=== PATIENT | female | born 1990 | race Caucasian/White ===

== ENCOUNTER 2021-02-24 09:12 | Inpatient (IN) ==
[2021-02-24] MEDS ORDERED: OXYTOCIN 30 UNITS/500 ML BAG IV PRN ×2 (10:51→18:27)
--- NOTE | 2021-02-24 11:01 | Labor Progress Brief Note ---
Date of Service February 24, 2021 Subjective Contractions Q5-10 no LOF, VB good FM Assessment & Plan (1) Normal labor and delivery: Physical Exam Physical Exam: 4cm/80/-2 FHT Cat 1 [place] Q5-10 Results & Data ([facility]) Vital Signs (Past 12 Hours) Vital Signs Temp Pulse Resp BP 02/24/21 09:39 97.9 F 20 02/24/21 09:27 96 H 122/72 Coding Level of Care Code None Diagnoses Normal labor and delivery O80
[2021-02-24 11:16] LABS: Hematocrit (blood only) 35.2 % (37-47); Hemoglobin 11.8 g/dL (12.0-16.0); Mean Corpuscular Hemoglobin 28.8 pg (25-34); Mean Corpuscular Hgb Conc 33.5 g/dL (32-36); Mean Corpuscular Volume 85.9 fL (80-100); Mean Platelet Volume 9.7 fL (7.4-10.4); Platelet Count 265 K/uL (130-400); RDW Coefficient of Variation 14.5 % (11.5-14.5); RDW Standard Deviation 44.9 fL (36.4-46.3); White Blood Count 15.78 K/uL (4.8-10.8)
[2021-02-24] MEDS: LACTATED RINGER'S 1,000 ML IV PRN ×2 (18:15→19:31)
[2021-02-24] MEDS ORDERED: ePHEDrine sulfate 50 MG/ML AMP ONE (18:27)
[2021-02-24] MEDS ORDERED: SODIUM CHLORIDE 0.9% INJ 10 ML VIAL ONE (18:27)
[2021-02-24] MEDS ORDERED: BUPIVACAINE 0.25% 30 ML VIAL ONE (18:28)
[2021-02-24] MEDS ORDERED: fentaNYL 2MCG/ML ROPIVACAINE 1.25MG/ML 100 ML BAG EPI ONE (18:28)
[2021-02-24] MEDS ORDERED: fentaNYL citrate 100 MCG/2 ML VIAL ONE (18:28)
--- NOTE | 2021-02-24 18:29 | Labor Progress Brief Note ---
Date of Service February 24, 2021 Subjective requesting epidural Assessment & Plan (1) Normal labor and delivery: Patient would like epidural; will provide, can assess toco better when maternal movement is less, and start pitocin as cervical change was minimal. Admission and Anticipated Discharge Date Admission Date: February 24, 2021 Physical Exam Physical Exam: /0 FHT Cat 1 [place] irreg Results & Data ([facility]) Vital Signs (Past 12 Hours) Vital Signs Temp Pulse Resp BP 02/24/21 17:34 92 H 142/74 H 02/24/21 17:32 98.1 F 20 02/24/21 15:48 98.1 F 95 H 20 128/76 02/24/21 14:30 98.1 F 94 H 20 129/76 02/24/21 12:39 91 H 132/72 02/24/21 09:39 97.9 F 20 02/24/21 09:27 96 H 122/72 Coding Level of Care Code None Diagnoses Normal labor and delivery O80
--- NOTE | 2021-02-24 19:01 | Anesthesiology Consultation ---
Date of Service February 24, 2021 Assessment & Plan (1) Encounter for pre-operative examination: Chart Review Chart Review: Acceptable Risk for Labor Epidural History Height/Weight Height: 5 ft 7 in Weight: 109.769 kg Allergies Allergy/AdvReac Type Severity Reaction Status Date / Time Penicillins Allergy Verified 02/21/21 12:21 pollen extracts Allergy Verified 02/21/21 12:21 Medications Home Medications Medication Instructions Recorded Confirmed Last Taken albuterol sulfate 90 mcg/actuation 2 puff INHALATION Q6H PRN 10/18/20 02/21/21 Unknown aerosol inhaler levothyroxine 200 mcg capsule 212 mcg PO DAILY 10/18/20 02/24/21 02/24/21 0600 acetaminophen PO 11/15/20 02/21/21 Unknown vit #[id number] 1 tab PO 02/24/21 02/24/21 0600 Active Medications Generic Name Dose Route Start Last Admin Trade Name Freq PRN Reason Stop Dose Admin Lactated Ringer's 1,000 mls @ 125 mls/hr 02/24/21 10:51 02/24/21 18:15 Lr IV 02/26/21 10:50 999 mls/hr .Q8H PRN Administration L&D Protocol Protocol Past Medical History Medical History Asthma Skin cancer Past Family History Family History Father Myocardial infarction Diabetes Mother COPD (chronic obstructive pulmonary disease) Grandmother (Paternal) Skin cancer Past Surgical History Surgical History Status post surgical removal of malignant neoplasm of skin Social History Smoking Status: Former smoker Hx Alcohol Use: No Hx Substance Use: No substance use type: does not use Physical Exam Vital Signs Last Vital Signs Temp 36.7 C 02/24/21 17:32 Pulse 92 H 02/24/21 17:34 Resp 20 02/24/21 17:32 BP 142/74 H 02/24/21 17:34 Testing Laboratory Results 02/24/21 11:03
[2021-02-24] MEDS ORDERED: NALOXONE HCL 1 MG in SODIUM CHLORIDE 0.9% 1000ML 1,000 ML IV PRN (19:29)
[2021-02-24] MEDS ORDERED: ONDANSETRON INJ 2 MG/ML 2 ML VIAL IV PRN (19:29)
[2021-02-24] MEDS ORDERED: fentaNYL 2MCG/ML ROPIVACAINE 1.25MG/ML 100 ML BAG EPI PRN (19:29)
[2021-02-24] MEDS ORDERED: NALOXONE HCL 0.4 MG/1 ML VIAL/CARP IV PRN (19:29)
[2021-02-24] MEDS ORDERED: ePHEDrine sulfate 50 MG/ML AMP IV PRN (19:29)
[2021-02-25] MEDS: LACTATED RINGER'S 1,000 ML IV PRN ×2 (02:50→11:09)
--- NOTE | 2021-02-25 03:47 | Labor Progress Brief Note ---
Date of Service February 25, 2021 Subjective Comfortable with epidural Assessment & Plan (1) Normal labor and delivery: Patient has reached complete dilation and was labored-down due to other events on L&D. Pitocin mentioned and ordered at 1830 was never started also due to other events. RN recently called me to ask to start pitocin to make second stage more effective as contractions are widely spaced; pt is now beginning pitocin. Contractions moving closer and will soon begin active pushing. Will require coaching to make pushing more effective, clenching external muscles with pushes but also moving baby with a test push during my exam. Maternal temp and baseline noted, no chorio or indication for abx yet but may become necessary depending on how long 2nd stage takes. Admission and Anticipated Discharge Date Admission Date: February 24, 2021 Physical Exam Physical Exam: /+2 FHT Cat 1 with baseline 155 [place] Q5, pit @ 1 Test push minimally effective Results & Data ([facility]) Vital Signs (Past 12 Hours) Vital Signs Temp Pulse Resp BP Pulse Ox 02/25/21 03:27 110 H 99 02/25/21 03:22 114 H 107/58 L 99 02/25/21 03:17 127 H 100 02/25/21 03:12 115 H 100 02/25/21 03:07 113 H 114/59 L 100 02/25/21 03:02 107 H 98 02/25/21 02:57 108 H 99 02/25/21 02:52 109 H 123/75 99 02/25/21 02:47 111 H 97 02/25/21 02:42 115 H 97 02/25/21 02:37 113 H 97 02/25/21 02:36 105 H 121/69 02/25/21 02:32 102 H 97 02/25/21 02:27 111 H 97 02/25/21 02:22 109 H 121/77 98 02/25/21 02:17 102 H 97 02/25/21 02:12 105 H 99 02/25/21 02:07 102 H 98 02/25/21 02:05 106 H 125/76 02/25/21 02:02 113 H 99 02/25/21 02:01 99.3 F 18 02/25/21 01:57 107 H 98 02/25/21 01:52 112 H 97 02/25/21 01:51 105 H 126/74 02/25/21 01:47 103 H 97 02/25/21 01:42 111 H 100 02/25/21 01:37 104 H 98 02/25/21 01:35 112 H 124/76 02/25/21 01:32 100 H 97 02/25/21 01:27 108 H 96 02/25/21 01:22 107 H 126/80 97 02/25/21 01:17 100 H 97 02/25/21 01:12 99 H 99 02/25/21 01:07 102 H 100 02/25/21 01:05 99 H 133/75 02/25/21 01:02 99 H 99 02/25/21 00:57 100 H 99 02/25/21 00:52 102 H 100 02/25/21 00:51 98 H 137/80 02/25/21 00:47 100 H 100 02/25/21 00:42 102 H 99 02/25/21 00:37 113 H 121/79 100 02/25/21 00:32 96 H 97 02/25/21 00:27 97 H 98 02/25/21 00:22 95 H 98 02/25/21 00:21 93 H 132/79 02/25/21 00:17 107 H 99 02/25/21 00:12 108 H 98 02/25/21 00:07 100 H 97 02/25/21 00:06 110 H 103/59 L 02/25/21 00:02 110 H 98 02/24/21 23:57 107 H 98 02/24/21 23:53 108 H 110/54 L 02/24/21 23:52 109 H 99 02/24/21 23:47 102 H 98 02/24/21 23:42 97 H 97 02/24/21 23:37 98 H 96 02/24/21 23:36 103 H 106/56 L 02/24/21 23:32 122 H 97 02/24/21 23:27 105 H 97 02/24/21 23:22 112 H 96 02/24/21 23:21 111 H 98/55 L 02/24/21 23:17 100 H 97 02/24/21 23:12 112 H 98 02/24/21 23:07 105 H 98 02/24/21 23:06 99 H 120/71 02/24/21 23:02 117 H 98 02/24/21 23:00 99.0 F 18 02/24/21 22:57 95 H 98 02/24/21 22:52 112 H 97 02/24/21 22:51 103 H 115/67 02/24/21 22:47 100 H 97 02/24/21 22:42 101 H 96 02/24/21 22:37 111 H 96 02/24/21 22:36 109 H 108/60 02/24/21 22:32 103 H 96 02/24/21 22:27 100 H 96 02/24/21 22:22 107 H 96 02/24/21 22:21 104 H 112/62 02/24/21 22:17 100 H 96 02/24/21 22:12 102 H 96 02/24/21 22:07 105 H 108/58 L 96 02/24/21 22:02 97 H 96 02/24/21 21:57 96 H 95 02/24/21 21:52 95 H 96 02/24/21 21:51 99 H 107/60 02/24/21 21:47 98 H 96 02/24/21 21:42 101 H 96 02/24/21 21:37 100 H 97 02/24/21 21:36 97 H 112/65 02/24/21 21:32 97 H 96 02/24/21 21:27 94 H 97 02/24/21 21:22 89 100 02/24/21 21:20 95 H 107/65 02/24/21 21:17 92 H 98 02/24/21 21:15 98.2 F 18 02/24/21 21:12 92 H 98 02/24/21 21:10 95 H 106/62 02/24/21 21:07 93 H 98 02/24/21 21:02 93 H 97 02/24/21 20:57 93 H 97 02/24/21 20:52 101 H 96 02/24/21 20:47 94 H 97 02/24/21 20:42 90 96 02/24/21 20:37 90 97 02/24/21 20:32 106 H 98 02/24/21 20:27 89 96 02/24/21 20:22 85 97 02/24/21 20:20 88 115/63 02/24/21 20:17 84 97 02/24/21 20:12 96 H 97 02/24/21 20:07 94 H 97 02/24/21 20:06 90 113/64 02/24/21 20:02 88 97 02/24/21 19:57 95 H 97 02/24/21 19:53 95 H 119/65 02/24/21 19:52 96 H 97 02/24/21 19:47 100 H 97 02/24/21 19:42 102 H 97 02/24/21 19:37 107 H 98 02/24/21 19:36 110 H 119/67 02/24/21 19:33 103 H 116/63 02/24/21 19:32 108 H 99 02/24/21 19:30 98 H 116/67 02/24/21 19:27 111 H 116/61 100 02/24/21 19:26 98.6 F 02/24/21 19:25 94 H 125/68 02/24/21 19:22 95 H 100 02/24/21 19:21 116 H 150/72 H 02/24/21 19:18 125 H 150/85 H 02/24/21 19:17 113 H 100 02/24/21 19:15 109 H 148/73 H 02/24/21 19:12 103 H 100 02/24/21 17:34 92 H 142/74 H 02/24/21 17:32 98.1 F 20 02/24/21 15:48 98.1 F 95 H 20 128/76 Coding Level of Care Code None Diagnoses Normal labor and delivery O80
--- NOTE | 2021-02-25 07:10 | Delivery Summary ---
Vaginal Delivery Summary Date of Service February 25, 2021 Vaginal Delivery Summary DIAGNOSES: 1. Sandhu intrauterine at 40w2d gestation. 2. Spontaneous onset of labor. 3. Group B Streptococcus Neg. PROCEDURE: Spontaneous vaginal delivery and repair of second degree laceration. SURGEON: Alaina Caraballo MD. IMAGING SPECIALIST: None. ESTIMATED BLOOD LOSS: 300 mL. COMPLICATIONS: None. PLACENTA: Spontaneous and intact with a 3-vessel cord. DISPOSITION: Stable to labor and delivery. DESCRIPTION: The patient pushed well and brought the head to in OA position. The 's head was allowed to deliver with contraction force and no further active pushing, with the perineum protected during this time. The shoulders delivered easily with a maternal pushing effort. There was no nuchal cord. The left shoulder was anterior, and right arm compound presentation was noted. The shoulders and body delivered without any difficulty, and the infant was placed on the maternal abdomen. It was vigorous and moving all extremities, and making respiratory efforts. The cord was doubly clamped by the MD and then cut by the FOB. The placenta delivered spontaneously and was noted to be intact and with a 3VC. The cervix, vagina and perineum were examined and were found to have a second-degree laceration which was repaired in the usual manner with vicryl suture, including a crown stitch to rebuild the perineal body. The fundus was firm and lochia minimal immediately after delivery. [facility] Vaginal Delivery Charge Vaginal Delivery Codes: 53259 global code for the antepartum, delivery, and post-
[2021-02-25] MEDS ORDERED: oxyCODONE/ACETAMINOPHEN 5mg/325mg TAB PO PRN (07:16)
[2021-02-25] MEDS ORDERED: SUPERCREAM 0.870% 15 GM JAR EXT PRN (07:16)
[2021-02-25] MEDS ORDERED: BENZOCAINE 20% AER SPR 82.5 GM CAN EXT PRN (07:16)
[2021-02-25] MEDS ORDERED: HYDROCORTISONE ACETATE 25 MG SUPP PR PRN (07:16)
[2021-02-25] MEDS ORDERED: ACETAMINOPHEN 325 MG TAB PO PRN (07:16)
[2021-02-25] MEDS ORDERED: DIPHTHERIA/TETANUS/PERTUSSIS 0.5 ML SYR/VIAL IM ONE (07:16)
--- NOTE | 2021-02-25 07:27 | Anesthesiology Progress Note ---
Date of Service February 25, 2021 Anesthesia Post Procedure Vital Signs Vital Signs: Temp Pulse Resp BP Pulse Ox 02/25/21 07:21 114 H 109/60 02/25/21 07:06 108 H 101/53 L 02/25/21 06:51 112 H 106/54 L 02/25/21 06:36 115 H 114/55 L 02/25/21 06:21 113 H 122/57 L 02/25/21 06:12 120 H 100 02/25/21 06:07 189 H 99 02/25/21 06:06 160 H 139/78 02/25/21 06:02 135 H 99 02/25/21 05:57 134 H 100 02/25/21 05:52 132 H 100 02/25/21 05:51 156 H 91 02/25/21 05:47 123 H 97 02/25/21 05:46 137 H 89 L 02/25/21 05:42 186 H 93 02/25/21 05:40 164 H 90 02/25/21 05:37 159 H 99 02/25/21 05:36 123 H 129/68 02/25/21 05:32 130 H 98 02/25/21 05:27 194 H 98 02/25/21 05:22 124 H 99 02/25/21 05:21 116 H 124/58 L 02/25/21 05:19 127 H 81 L 02/25/21 05:17 122 H 98 02/25/21 05:12 174 H 100 02/25/21 05:08 110 H 116/69 02/25/21 05:07 106 H 100 02/25/21 05:02 117 H 97 02/25/21 04:57 113 H 98 02/25/21 04:52 118 H 96 02/25/21 04:51 116 H 97/60 L 02/25/21 04:50 113 H 93 02/25/21 04:47 104 H 98 02/25/21 04:42 105 H 97 02/25/21 04:37 106 H 97 02/25/21 04:36 106 H 108/55 L 02/25/21 04:32 110 H 97 02/25/21 04:27 112 H 97 02/25/21 04:22 108 H 97 02/25/21 04:21 109 H 108/61 02/25/21 04:17 110 H 100 02/25/21 04:12 110 H 98 02/25/21 04:07 118 H 99 02/25/21 04:05 113 H 109/58 L 02/25/21 04:02 111 H 98 02/25/21 03:57 111 H 98 02/25/21 03:52 111 H 99 02/25/21 03:51 110 H 109/59 L 02/25/21 03:47 109 H 99 02/25/21 03:42 110 H 100 02/25/21 03:37 116 H 100 02/25/21 03:35 109 H 109/61 02/25/21 03:32 116 H 98 02/25/21 03:27 110 H 99 02/25/21 03:22 114 H 107/58 L 99 02/25/21 03:17 127 H 100 02/25/21 03:12 115 H 100 02/25/21 03:07 113 H 114/59 L 100 02/25/21 03:02 107 H 98 02/25/21 02:57 108 H 99 02/25/21 02:52 109 H 123/75 99 02/25/21 02:47 111 H 97 02/25/21 02:42 115 H 97 02/25/21 02:37 113 H 97 02/25/21 02:36 105 H 121/69 02/25/21 02:32 102 H 97 02/25/21 02:27 111 H 97 02/25/21 02:22 109 H 121/77 98 02/25/21 02:17 102 H 97 02/25/21 02:12 105 H 99 02/25/21 02:07 102 H 98 02/25/21 02:05 106 H 125/76 02/25/21 02:02 113 H 99 02/25/21 02:01 37.4 C 18 02/25/21 01:57 107 H 98 02/25/21 01:52 112 H 97 02/25/21 01:51 105 H 126/74 02/25/21 01:47 103 H 97 02/25/21 01:42 111 H 100 02/25/21 01:37 104 H 98 02/25/21 01:35 112 H 124/76 02/25/21 01:32 100 H 97 02/25/21 01:27 108 H 96 02/25/21 01:22 107 H 126/80 97 02/25/21 01:17 100 H 97 02/25/21 01:12 99 H 99 02/25/21 01:07 102 H 100 02/25/21 01:05 99 H 133/75 02/25/21 01:02 99 H 99 02/25/21 00:57 100 H 99 02/25/21 00:52 102 H 100 02/25/21 00:51 98 H 137/80 02/25/21 00:47 100 H 100 02/25/21 00:42 102 H 99 02/25/21 00:37 113 H 121/79 100 02/25/21 00:32 96 H 97 02/25/21 00:27 97 H 98 02/25/21 00:22 95 H 98 02/25/21 00:21 93 H 132/79 02/25/21 00:17 107 H 99 02/25/21 00:12 108 H 98 02/25/21 00:07 100 H 97 02/25/21 00:06 110 H 103/59 L 02/25/21 00:02 110 H 98 02/24/21 23:57 107 H 98 02/24/21 23:53 108 H 110/54 L 02/24/21 23:52 109 H 99 02/24/21 23:47 102 H 98 02/24/21 23:42 97 H 97 02/24/21 23:37 98 H 96 02/24/21 23:36 103 H 106/56 L 02/24/21 23:32 122 H 97 02/24/21 23:27 105 H 97 02/24/21 23:22 112 H 96 02/24/21 23:21 111 H 98/55 L 02/24/21 23:17 100 H 97 02/24/21 23:12 112 H 98 02/24/21 23:07 105 H 98 02/24/21 23:06 99 H 120/71 02/24/21 23:02 117 H 98 02/24/21 23:00 37.2 C 18 02/24/21 22:57 95 H 98 02/24/21 22:52 112 H 97 02/24/21 22:51 103 H 115/67 02/24/21 22:47 100 H 97 02/24/21 22:42 101 H 96 02/24/21 22:37 111 H 96 02/24/21 22:36 109 H 108/60 02/24/21 22:32 103 H 96 02/24/21 22:27 100 H 96 02/24/21 22:22 107 H 96 02/24/21 22:21 104 H 112/62 02/24/21 22:17 100 H 96 02/24/21 22:12 102 H 96 02/24/21 22:07 105 H 108/58 L 96 02/24/21 22:02 97 H 96 02/24/21 21:57 96 H 95 02/24/21 21:52 95 H 96 02/24/21 21:51 99 H 107/60 02/24/21 21:47 98 H 96 02/24/21 21:42 101 H 96 02/24/21 21:37 100 H 97 02/24/21 21:36 97 H 112/65 02/24/21 21:32 97 H 96 02/24/21 21:27 94 H 97 02/24/21 21:22 89 100 02/24/21 21:20 95 H 107/65 02/24/21 21:17 92 H 98 02/24/21 21:15 36.8 C 18 02/24/21 21:12 92 H 98 02/24/21 21:10 95 H 106/62 02/24/21 21:07 93 H 98 02/24/21 21:02 93 H 97 02/24/21 20:57 93 H 97 02/24/21 20:52 101 H 96 02/24/21 20:47 94 H 97 02/24/21 20:42 90 96 02/24/21 20:37 90 97 02/24/21 20:32 106 H 98 02/24/21 20:27 89 96 02/24/21 20:22 85 97 02/24/21 20:20 88 115/63 02/24/21 20:17 84 97 02/24/21 20:12 96 H 97 02/24/21 20:07 94 H 97 02/24/21 20:06 90 113/64 02/24/21 20:02 88 97 02/24/21 19:57 95 H 97 02/24/21 19:53 95 H 119/65 02/24/21 19:52 96 H 97 02/24/21 19:47 100 H 97 02/24/21 19:42 102 H 97 02/24/21 19:37 107 H 98 02/24/21 19:36 110 H 119/67 02/24/21 19:33 103 H 116/63 02/24/21 19:32 108 H 99 02/24/21 19:30 98 H 116/67 02/24/21 19:27 111 H 116/61 100 02/24/21 19:26 37.0 C 02/24/21 19:25 94 H 125/68 02/24/21 19:22 95 H 100 02/24/21 19:21 116 H 150/72 H 02/24/21 19:18 125 H 150/85 H 02/24/21 19:17 113 H 100 02/24/21 19:15 109 H 148/73 H 02/24/21 19:12 103 H 100 02/24/21 17:34 92 H 142/74 H 02/24/21 17:32 36.7 C 20 02/24/21 15:48 36.7 C 95 H 20 128/76 02/24/21 14:30 36.7 C 94 H 20 129/76 02/24/21 12:39 91 H 132/72 02/24/21 09:39 36.6 C 20 02/24/21 09:27 96 H 122/72 Pain Intensity Lower Back: Pain Intensity: 2 Transfer of Care Handoff Completed per policy Notes Mental Status: alert / awake / arousable and participated in evaluation Patient Amnestic to Procedure: Yes Nausea / Vomiting: adequately controlled Pain: adequately controlled Airway Patency, RR, SpO2: stable & adequate BP & HR: stable & adequate Hydration State: stable & adequate Anesthetic Complications: no major complications apparent and Pt Satisfied with anesthetic care
[2021-02-25] MEDS: LEVOTHYROXINE SODIUM 100 MCG TABLET PO SCH (07:49)
[2021-02-25] MEDS: LEVOTHYROXINE SODIUM 112 MCG TABLET PO SCH (07:49)
--- NOTE | 2021-02-25 09:05 | Obstetrical Progress Note ---
Date of Service February 25, 2021 Assessment & Plan Admission and Anticipated Discharge Date Admission Date: February 24, 2021 Subjective I was called to patient's room by RN for elevated heart rate. Patient has been sitting up, eating breakfast, and at routine vital signs check nurse discovered pulse of 150. At that time, the automatic blood pressure cuff was located on the patient's elbow, and I asked for to be repositioned in rechecked. Subsequent to pulse was still elevated, 137. Blood pressure 119/57. Patient's pulse, and review of her overnight events, was mostly in the 90s to low 100s, with some values reaching as high as 174 and 194 in the past few hours, likely while she was pushing. I examined the patient, she stated she felt fine, but "hot". She states she has been hot her entire , and this is not out of the ordinary. Denies headache, vision changes, chest pain, shortness of breath, nausea, vomiting. She did also just recently get up to the bathroom with RN help for the first time since delivery, felt faint, and required ammonia stick to resume full consciousness. Physical exam reveals a patient who is awake, talking, sitting up in bed. Heart rate is tachycardic with regular rhythm. Lung sounds are clear and equal bilaterally. Abdomen is soft. No lower extremity edema. Small lochia. I have ordered stat labs, CBC, CMP, TSH with T4. Also ordered stat EKG. Given that patient's O2 saturation has been normal, and she does not report shortness of breath or chest pain, I think PE is less likely, however if no obvious findings and the above labs will also consider CT to rule out. I discussed this with the patient, she is agreeable. Results & Data ([facility]) Vital Signs (Past 12 Hours) Vital Signs Temp Pulse Resp BP Pulse Ox 02/25/21 08:56 137 H 97 02/25/21 08:51 150 H 119/57 L 97 02/25/21 08:46 128 H 97 02/25/21 08:43 133 H 121/61 02/25/21 08:21 151 H 126/51 L 02/25/21 08:06 126 H 112/56 L 02/25/21 07:51 118 H 113/52 L 02/25/21 07:36 116 H 101/57 L 02/25/21 07:21 114 H 109/60 02/25/21 07:20 18 02/25/21 07:06 108 H 101/53 L 02/25/21 07:05 18 02/25/21 06:51 112 H 106/54 L 02/25/21 06:36 115 H 114/55 L 02/25/21 06:21 113 H 122/57 L 02/25/21 06:12 120 H 100 02/25/21 06:07 189 H 99 02/25/21 06:06 160 H 139/78 02/25/21 06:02 135 H 99 02/25/21 05:57 134 H 100 02/25/21 05:52 132 H 100 02/25/21 05:51 156 H 91 02/25/21 05:47 123 H 97 02/25/21 05:46 137 H 89 L 02/25/21 05:42 186 H 93 02/25/21 05:40 164 H 90 02/25/21 05:37 159 H 99 02/25/21 05:36 123 H 129/68 02/25/21 05:32 130 H 98 02/25/21 05:27 194 H 98 02/25/21 05:22 124 H 99 02/25/21 05:21 116 H 124/58 L 02/25/21 05:19 127 H 81 L 02/25/21 05:17 122 H 98 02/25/21 05:12 174 H 100 02/25/21 05:08 110 H 116/69 02/25/21 05:07 106 H 100 02/25/21 05:02 117 H 97 02/25/21 04:57 113 H 98 02/25/21 04:52 118 H 96 02/25/21 04:51 116 H 97/60 L 02/25/21 04:50 113 H 93 02/25/21 04:47 104 H 98 02/25/21 04:42 105 H 97 02/25/21 04:37 106 H 97 02/25/21 04:36 106 H 108/55 L 02/25/21 04:32 110 H 97 02/25/21 04:27 112 H 97 02/25/21 04:22 108 H 97 02/25/21 04:21 109 H 108/61 02/25/21 04:17 110 H 100 02/25/21 04:12 110 H 98 02/25/21 04:07 118 H 99 02/25/21 04:05 113 H 109/58 L 02/25/21 04:02 111 H 98 02/25/21 03:57 111 H 98 02/25/21 03:52 111 H 99 02/25/21 03:51 110 H 109/59 L 02/25/21 03:47 109 H 99 02/25/21 03:42 110 H 100 02/25/21 03:37 116 H 100 02/25/21 03:35 109 H 109/61 02/25/21 03:32 116 H 98 02/25/21 03:27 110 H 99 02/25/21 03:22 114 H 107/58 L 99 02/25/21 03:17 127 H 100 02/25/21 03:12 115 H 100 02/25/21 03:07 113 H 114/59 L 100 02/25/21 03:02 107 H 98 02/25/21 02:57 108 H 99 02/25/21 02:52 109 H 123/75 99 02/25/21 02:47 111 H 97 02/25/21 02:42 115 H 97 02/25/21 02:37 113 H 97 02/25/21 02:36 105 H 121/69 02/25/21 02:32 102 H 97 02/25/21 02:27 111 H 97 02/25/21 02:22 109 H 121/77 98 02/25/21 02:17 102 H 97 02/25/21 02:12 105 H 99 02/25/21 02:07 102 H 98 02/25/21 02:05 106 H 125/76 02/25/21 02:02 113 H 99 02/25/21 02:01 37.4 C 18 02/25/21 01:57 107 H 98 02/25/21 01:52 112 H 97 02/25/21 01:51 105 H 126/74 02/25/21 01:47 103 H 97 02/25/21 01:42 111 H 100 02/25/21 01:37 104 H 98 02/25/21 01:35 112 H 124/76 02/25/21 01:32 100 H 97 02/25/21 01:27 108 H 96 02/25/21 01:22 107 H 126/80 97 04/26/21 01:17 100 H 97 02/25/21 01:12 99 H 99 02/25/21 01:07 102 H 100 02/25/21 01:05 99 H 133/75 02/25/21 01:02 99 H 99 02/25/21 00:57 100 H 99 02/25/21 00:52 102 H 100 02/25/21 00:51 98 H 137/80 02/25/21 00:47 100 H 100 02/25/21 00:42 102 H 99 02/25/21 00:37 113 H 121/79 100 02/25/21 00:32 96 H 97 02/25/21 00:27 97 H 98 02/25/21 00:22 95 H 98 02/25/21 00:21 93 H 132/79 02/25/21 00:17 107 H 99 02/25/21 00:12 108 H 98 02/25/21 00:07 100 H 97 02/25/21 00:06 110 H 103/59 L 02/25/21 00:02 110 H 98 02/24/21 23:57 107 H 98 02/24/21 23:53 108 H 110/54 L 02/24/21 23:52 109 H 99 02/24/21 23:47 102 H 98 02/24/21 23:42 97 H 97 02/24/21 23:37 98 H 96 02/24/21 23:36 103 H 106/56 L 02/24/21 23:32 122 H 97 02/24/21 23:27 105 H 97 02/24/21 23:22 112 H 96 02/24/21 23:21 111 H 98/55 L 02/24/21 23:17 100 H 97 02/24/21 23:12 112 H 98 02/24/21 23:07 105 H 98 02/24/21 23:06 99 H 120/71 02/24/21 23:02 117 H 98 02/24/21 23:00 37.2 C 18 02/24/21 22:57 95 H 98 02/24/21 22:52 112 H 97 02/24/21 22:51 103 H 115/67 02/24/21 22:47 100 H 97 02/24/21 22:42 101 H 96 02/24/21 22:37 111 H 96 04/25/21 22:36 109 H 108/60 02/24/21 22:32 103 H 96 02/24/21 22:27 100 H 96 02/24/21 22:22 107 H 96 02/24/21 22:21 104 H 112/62 02/24/21 22:17 100 H 96 02/24/21 22:12 102 H 96 02/24/21 22:07 105 H 108/58 L 96 02/24/21 22:02 97 H 96 02/24/21 21:57 96 H 95 02/24/21 21:52 95 H 96 02/24/21 21:51 99 H 107/60 02/24/21 21:47 98 H 96 02/24/21 21:42 101 H 96 02/24/21 21:37 100 H 97 02/24/21 21:36 97 H 112/65 02/24/21 21:32 97 H 96 02/24/21 21:27 94 H 97 02/24/21 21:22 89 100 02/24/21 21:20 95 H 107/65 02/24/21 21:17 92 H 98 02/24/21 21:15 36.8 C 18 02/24/21 21:12 92 H 98 02/24/21 21:10 95 H 106/62 02/24/21 21:07 93 H 98 02/24/21 21:02 93 H 97 PG Care Time/CCT Total # of Minutes Spent Total Time Spent with Patient: Total time spent is greater than 50% in coordination of care (as documented) at patient's floor/unit and/or counseling patient: Coding Level of Care Code None
[2021-02-25 09:29] LABS: Albumin Level 2.2 gm/dl (3.4-5.0); Calcium 8.7 mg/dl (8.5-10.1); Creatinine Clr Calc Pharmacy 142.5 ml/min; Est GFR (African American) 127.2; Est GFR (Non-African American) 109.7; Potassium 3.5 mmol/L (3.5-5.1)
[2021-02-25 09:39] LABS: Albumin Globulin Ratio 0.6 (0.9-2); Bilirubin,Total 0.4 mg/dl (0.2-1); Globulin 3.5 gm/dl (2.5-4.0); Thyroid Stimulating Hormone 0.335 uIu/ml (0.300-4.500); Total Protein 5.7 gm/dl (6.4-8.2)
[2021-02-25 09:46] LABS: Basophils # (auto) 0.03 K/uL (0-0.2); Basophils % (auto) 0.1 %; Eosinophils # (auto) 0.01 K/uL (0-0.5); Hemoglobin 11.2 g/dL (12.0-16.0); Immature Granulocytes # (auto) 0.25 K/uL (0.00-0.02); Immature Granulocytes % (auto) 0.9 %; Lymphocytes # (auto) 1.28 K/uL (1.2-3.4); Lymphocytes % (auto) 4.7 %; Mean Corpuscular Hemoglobin 28.7 pg (25-34); Mean Corpuscular Hgb Conc 33.9 g/dL (32-36); Mean Corpuscular Volume 84.6 fL (80-100); Mean Platelet Volume 10.4 fL (7.4-10.4); Monocytes # (auto) 1.79 K/uL (0.11-0.59); Monocytes % (auto) 6.6 %; Neutrophils # (auto) 23.89 K/uL (1.4-6.5); Neutrophils % (auto) 87.7 %; Platelet Count 258 K/uL (130-400); RDW Coefficient of Variation 14.6 % (11.5-14.5); RDW Standard Deviation 44.9 fL (36.4-46.3); Toxic Vacuolation 1+; White Blood Count 27.25 K/uL (4.8-10.8)
--- NOTE | 2021-02-25 09:52 | Anesthesia Procedure Note ---
Date of Service February 25, 2021 Anesthesia Post Epidural Note Vital Signs Vital Signs: Temp Pulse Resp BP Pulse Ox 37.4 C 127 H 18 109/57 L 96 02/25/21 02:01 02/25/21 09:46 02/25/21 07:50 02/25/21 09:36 02/25/21 09:46 Pain Intensity Lower Back: Pain Intensity: 2 Notes Mental Status: alert / awake / arousable and participated in evaluation Patient Amnestic to Procedure: Yes Nausea / Vomiting: adequately controlled Pain: adequately controlled Airway Patency, RR, SpO2: stable & adequate BP & HR: stable & adequate Hydration State: stable & adequate Anesthetic Complications: no major complications apparent and Pt Satisfied with anesthetic care
[2021-02-25] MEDS ORDERED: KETOROLAC 30 MG/ML VIAL ONE (10:38)
[2021-02-25] MEDS ORDERED: METHYLERGONOVINE MALEATE 0.2 MG/ML AMP IM STA (10:40)
[2021-02-25] MEDS ORDERED: KETOROLAC 30 MG/ML VIAL IV ONE (10:40)
--- NOTE | 2021-02-25 10:46 | Obstetrical Progress Note ---
Date of Service February 25, 2021 Assessment & Plan Admission and Anticipated Discharge Date Admission Date: February 24, 2021 Subjective Called to patient's room for gush of blood - 435cc on chux weighed by RN. Mile ent awake and talking. Pulse elevated, BP wnl. Temp and O2 sat normal. Fundus at umbilicus. Vaginal exam revealed large amount of clots in vagina/lower uterine segment. This was expressed/removed and weighed for 380cc. Fundal massage performed, fundus firm, no further clots/bleeding expressed from vagina after removal of clots. Appears hemostatic. IV pitocin given @ 999. Methergine IM given. Will follow with LR @ 125. Highest on differential at this point is hemorrhage with resultant tachycardia. Will continue to monitor vitals closely and watch for any further bleeding. Hgb on admission 11.8, this morning's lab after delivery was 11.2. With chux weighed by RN 435 + expressed clots 380, + EBL at time of delivery 300ml = total blood loss of 1115cc. Will repeat H/H to continue to eval hemodynamic status. Results & Data ([facility]) Vital Signs (Past 12 Hours) Vital Signs Temp Pulse Resp BP Pulse Ox 02/25/21 10:36 131 H 125/69 02/25/21 10:06 141 H 96 02/25/21 10:01 140 H 95 02/25/21 09:56 132 H 96 02/25/21 09:51 139 H 97 02/25/21 09:46 127 H 96 02/25/21 09:41 137 H 97 02/25/21 09:36 135 H 109/57 L 97 02/25/21 09:31 134 H 97 02/25/21 09:26 136 H 96 02/25/21 09:21 140 H 100/52 L 97 02/25/21 09:16 138 H 95 02/25/21 09:11 119 H 96 02/25/21 09:06 133 H 108/53 L 96 02/25/21 09:01 138 H 96 02/25/21 08:56 137 H 97 02/25/21 08:51 150 H 119/57 L 97 02/25/21 08:46 128 H 97 02/25/21 08:43 133 H 121/61 02/25/21 08:21 151 H 126/51 L 02/25/21 08:06 126 H 112/56 L 02/25/21 07:51 118 H 113/52 L 02/25/21 07:50 18 02/25/21 07:36 116 H 101/57 L 02/25/21 07:21 114 H 109/60 02/25/21 07:20 18 02/25/21 07:06 108 H 101/53 L 02/25/21 07:05 18 02/25/21 06:51 112 H 106/54 L 02/25/21 06:36 115 H 114/55 L 02/25/21 06:21 113 H 122/57 L 02/25/21 06:12 120 H 100 02/25/21 06:07 189 H 99 02/25/21 06:06 160 H 139/78 02/25/21 06:02 135 H 99 02/25/21 05:57 134 H 100 02/25/21 05:52 132 H 100 02/25/21 05:51 156 H 91 02/25/21 05:47 123 H 97 02/25/21 05:46 137 H 89 L 02/25/21 05:42 186 H 93 02/25/21 05:40 164 H 90 02/25/21 05:37 159 H 99 02/25/21 05:36 123 H 129/68 02/25/21 05:32 130 H 98 02/25/21 05:27 194 H 98 02/25/21 05:22 124 H 99 02/25/21 05:21 116 H 124/58 L 02/25/21 05:19 127 H 81 L 02/25/21 05:17 122 H 98 02/25/21 05:12 174 H 100 02/25/21 05:08 110 H 116/69 02/25/21 05:07 106 H 100 02/25/21 05:02 117 H 97 02/25/21 04:57 113 H 98 02/25/21 04:52 118 H 96 02/25/21 04:51 116 H 97/60 L 02/25/21 04:50 113 H 93 02/25/21 04:47 104 H 98 02/25/21 04:42 105 H 97 02/25/21 04:37 106 H 97 02/25/21 04:36 106 H 108/55 L 02/25/21 04:32 110 H 97 02/25/21 04:27 112 H 97 02/25/21 04:22 108 H 97 02/25/21 04:21 109 H 108/61 02/25/21 04:17 110 H 100 02/25/21 04:12 110 H 98 02/25/21 04:07 118 H 99 02/25/21 04:05 113 H 109/58 L 02/25/21 04:02 111 H 98 02/25/21 03:57 111 H 98 02/25/21 03:52 111 H 99 02/25/21 03:51 110 H 109/59 L 02/25/21 03:47 109 H 99 02/25/21 03:42 110 H 100 02/25/21 03:37 116 H 100 02/25/21 03:35 109 H 109/61 02/25/21 03:32 116 H 98 02/25/21 03:27 110 H 99 02/25/21 03:22 114 H 107/58 L 99 02/25/21 03:17 127 H 100 02/25/21 03:12 115 H 100 02/25/21 03:07 113 H 114/59 L 100 02/25/21 03:02 107 H 98 02/25/21 02:57 108 H 99 02/25/21 02:52 109 H 123/75 99 02/25/21 02:47 111 H 97 02/25/21 02:42 115 H 97 02/25/21 02:37 113 H 97 02/25/21 02:36 105 H 121/69 02/25/21 02:32 102 H 97 02/25/21 02:27 111 H 97 02/25/21 02:22 109 H 121/77 98 02/25/21 02:17 102 H 97 02/25/21 02:12 105 H 99 02/25/21 02:07 102 H 98 02/25/21 02:05 106 H 125/76 02/25/21 02:02 113 H 99 02/25/21 02:01 37.4 C 18 02/25/21 01:57 107 H 98 02/25/21 01:52 112 H 97 02/25/21 01:51 105 H 126/74 02/25/21 01:47 103 H 97 02/25/21 01:42 111 H 100 02/25/21 01:37 104 H 98 02/25/21 01:35 112 H 124/76 02/25/21 01:32 100 H 97 02/25/21 01:27 108 H 96 02/25/21 01:22 107 H 126/80 97 02/25/21 01:17 100 H 97 02/25/21 01:12 99 H 99 02/25/21 01:07 102 H 100 02/25/21 01:05 99 H 133/75 02/25/21 01:02 99 H 99 02/25/21 00:57 100 H 99 02/25/21 00:52 102 H 100 02/25/21 00:51 98 H 137/80 02/25/21 00:47 100 H 100 02/25/21 00:42 102 H 99 02/25/21 00:37 113 H 121/79 100 02/25/21 00:32 96 H 97 02/25/21 00:27 97 H 98 02/25/21 00:22 95 H 98 02/25/21 00:21 93 H 132/79 02/25/21 00:17 107 H 99 02/25/21 00:12 108 H 98 02/25/21 00:07 100 H 97 02/25/21 00:06 110 H 103/59 L 02/25/21 00:02 110 H 98 02/24/21 23:57 107 H 98 02/24/21 23:53 108 H 110/54 L 02/24/21 23:52 109 H 99 02/24/21 23:47 102 H 98 02/24/21 23:42 97 H 97 02/24/21 23:37 98 H 96 02/24/21 23:36 103 H 106/56 L 02/24/21 23:32 122 H 97 02/24/21 23:27 105 H 97 02/24/21 23:22 112 H 96 02/24/21 23:21 111 H 98/55 L 02/24/21 23:17 100 H 97 02/24/21 23:12 112 H 98 02/24/21 23:07 105 H 98 02/24/21 23:06 99 H 120/71 02/24/21 23:02 117 H 98 02/24/21 23:00 37.2 C 18 02/24/21 22:57 95 H 98 02/24/21 22:52 112 H 97 02/24/21 22:51 103 H 115/67 02/24/21 22:47 100 H 97 PG Care Time/CCT Total # of Minutes Spent Total Time Spent with Patient: Total time spent is greater than 50% in coordination of care (as documented) at patient's floor/unit and/or counseling patient: Coding Level of Care Code None
[2021-02-25] MEDS: PRENATAL VITAMIN 1 TAB PO SCH (11:05)
[2021-02-25] MEDS: DOCUSATE SODIUM 100 MG CAP PO SCH ×2 (11:06→20:10)
[2021-02-25 11:10] LABS: Hematocrit (blood only) 30.7 % (37-47); Hemoglobin 10.3 g/dL (12.0-16.0)
--- NOTE | 2021-02-25 12:06 | Obstetrical Progress Note ---
Date of Service February 25, 2021 Assessment & Plan Admission and Anticipated Discharge Date Admission Date: February 24, 2021 Subjective Recheck of patient - sitting in bed, talking, comfortable, felt improvement in pain with the Toradol. HR has improved. BP wnl. Fundus firm, small lochia, no expression of clots/large blood. Will continue IV fluids, will give LR with 30u pitocin at 125/hr. Discussed with patient, she states she's feeling much better. Results & Data ([facility]) Vital Signs (Past 12 Hours) Vital Signs Temp Pulse Resp BP Pulse Ox 02/25/21 12:01 111 H 98 02/25/21 11:56 119 H 96 02/25/21 11:51 113 H 111/64 96 02/25/21 11:46 109 H 95 02/25/21 11:45 37.1 C 20 02/25/21 11:41 109 H 96 02/25/21 11:36 109 H 115/67 95 02/25/21 11:31 115 H 96 02/25/21 11:26 104 H 95 02/25/21 11:22 104 H 122/73 02/25/21 11:21 105 H 95 02/25/21 11:16 104 H 95 02/25/21 11:11 106 H 97 02/25/21 11:06 108 H 97 02/25/21 11:01 107 H 96 02/25/21 10:56 109 H 96 02/25/21 10:51 112 H 97 02/25/21 10:50 121 H 119/68 02/25/21 10:45 37.2 C 18 02/25/21 10:36 131 H 125/69 02/25/21 10:06 141 H 96 02/25/21 10:01 140 H 95 02/25/21 09:56 132 H 96 02/25/21 09:51 139 H 97 02/25/21 09:46 127 H 96 02/25/21 09:41 137 H 97 02/25/21 09:36 135 H 109/57 L 97 02/25/21 09:31 134 H 97 02/25/21 09:26 136 H 96 02/25/21 09:21 140 H 100/52 L 97 02/25/21 09:16 138 H 95 02/25/21 09:11 119 H 96 02/25/21 09:06 133 H 108/53 L 96 02/25/21 09:01 138 H 96 02/25/21 08:56 137 H 97 02/25/21 08:51 150 H 119/57 L 97 02/25/21 08:46 128 H 97 02/25/21 08:43 133 H 121/61 02/25/21 08:21 151 H 126/51 L 02/25/21 08:06 126 H 112/56 L 02/25/21 07:51 118 H 113/52 L 02/25/21 07:50 18 02/25/21 07:36 116 H 101/57 L 02/25/21 07:21 114 H 109/60 02/25/21 07:20 18 02/25/21 07:06 108 H 101/53 L 02/25/21 07:05 18 02/25/21 06:51 112 H 106/54 L 02/25/21 06:36 115 H 114/55 L 02/25/21 06:21 113 H 122/57 L 02/25/21 06:12 120 H 100 02/25/21 06:07 189 H 99 02/25/21 06:06 160 H 139/78 02/25/21 06:02 135 H 99 02/25/21 05:57 134 H 100 02/25/21 05:52 132 H 100 02/25/21 05:51 156 H 91 02/25/21 05:47 123 H 97 02/25/21 05:46 137 H 89 L 02/25/21 05:42 186 H 93 02/25/21 05:40 164 H 90 02/25/21 05:37 159 H 99 02/25/21 05:36 123 H 129/68 02/25/21 05:32 130 H 98 02/25/21 05:27 194 H 98 02/25/21 05:22 124 H 99 02/25/21 05:21 116 H 124/58 L 02/25/21 05:19 127 H 81 L 02/25/21 05:17 122 H 98 02/25/21 05:12 174 H 100 02/25/21 05:08 110 H 116/69 02/25/21 05:07 106 H 100 02/25/21 05:02 117 H 97 02/25/21 04:57 113 H 98 02/25/21 04:52 118 H 96 02/25/21 04:51 116 H 97/60 L 02/25/21 04:50 113 H 93 02/25/21 04:47 104 H 98 02/25/21 04:42 105 H 97 02/25/21 04:37 106 H 97 02/25/21 04:36 106 H 108/55 L 02/25/21 04:32 110 H 97 02/25/21 04:27 112 H 97 02/25/21 04:22 108 H 97 02/25/21 04:21 109 H 108/61 02/25/21 04:17 110 H 100 02/25/21 04:12 110 H 98 02/25/21 04:07 118 H 99 02/25/21 04:05 113 H 109/58 L 02/25/21 04:02 111 H 98 02/25/21 03:57 111 H 98 02/25/21 03:52 111 H 99 02/25/21 03:51 110 H 109/59 L 02/25/21 03:47 109 H 99 02/25/21 03:42 110 H 100 02/25/21 03:37 116 H 100 02/25/21 03:35 109 H 109/61 02/25/21 03:32 116 H 98 02/25/21 03:27 110 H 99 02/25/21 03:22 114 H 107/58 L 99 02/25/21 03:17 127 H 100 02/25/21 03:12 115 H 100 02/25/21 03:07 113 H 114/59 L 100 02/25/21 03:02 107 H 98 02/25/21 02:57 108 H 99 02/25/21 02:52 109 H 123/75 99 02/25/21 02:47 111 H 97 02/25/21 02:42 115 H 97 02/25/21 02:37 113 H 97 02/25/21 02:36 105 H 121/69 02/25/21 02:32 102 H 97 02/25/21 02:27 111 H 97 02/25/21 02:22 109 H 121/77 98 02/25/21 02:17 102 H 97 02/25/21 02:12 105 H 99 02/25/21 02:07 102 H 98 02/25/21 02:05 106 H 125/76 02/25/21 02:02 113 H 99 02/25/21 02:01 37.4 C 18 02/25/21 01:57 107 H 98 02/25/21 01:52 112 H 97 02/25/21 01:51 105 H 126/74 02/25/21 01:47 103 H 97 02/25/21 01:42 111 H 100 02/25/21 01:37 104 H 98 02/25/21 01:35 112 H 124/76 02/25/21 01:32 100 H 97 02/25/21 01:27 108 H 96 02/25/21 01:22 107 H 126/80 97 02/25/21 01:17 100 H 97 02/25/21 01:12 99 H 99 02/25/21 01:07 102 H 100 02/25/21 01:05 99 H 133/75 02/25/21 01:02 99 H 99 02/25/21 00:57 100 H 99 02/25/21 00:52 102 H 100 02/25/21 00:51 98 H 137/80 02/25/21 00:47 100 H 100 02/25/21 00:42 102 H 99 02/25/21 00:37 113 H 121/79 100 02/25/21 00:32 96 H 97 02/25/21 00:27 97 H 98 02/25/21 00:22 95 H 98 02/25/21 00:21 93 H 132/79 02/25/21 00:17 107 H 99 02/25/21 00:12 108 H 98 02/25/21 00:07 100 H 97 02/25/21 00:06 110 H 103/59 L PG Care Time/CCT Total # of Minutes Spent Total Time Spent with Patient: Total time spent is greater than 50% in coordination of care (as documented) at patient's floor/unit and/or counseling patient: Coding Level of Care Code None
[2021-02-25] MEDS ORDERED: OXYTOCIN 30 UNITS in LACTATED RINGER'S 1,000 ML IV SCH (12:15)
--- NOTE | 2021-02-25 14:48 | Electrocardiogram Report ---
Test Reason : Blood Pressure : / mmHG Vent. Rate : 135 BPM Atrial Rate : 135 BPM P-R Int : 136 ms QRS Dur : 070 ms QT Int : 274 ms P-R-T Axes : 042 056 046 degrees QTc Int : 411 ms Sinus tachycardia Nonspecific T wave abnormality Abnormal ECG No previous ECGs available Confirmed by Dayne Santo ([id number]) on 02/25/2021 2:48:00 PM Referred By: Alaina Caraballo Confirmed By:Dayne Santo
[2021-02-25] MEDS: IBUPROFEN 600 MG TAB PO PRN ×2 (19:00→23:50)
[2021-02-26] MEDS: LEVOTHYROXINE SODIUM 112 MCG TABLET PO SCH (06:04)
[2021-02-26] MEDS: LEVOTHYROXINE SODIUM 100 MCG TABLET PO SCH (06:04)
[2021-02-26 06:34] LABS: Hematocrit (blood only) 23.9 % (37-47); Mean Corpuscular Hemoglobin 28.8 pg (25-34); Mean Corpuscular Hgb Conc 33.5 g/dL (32-36); Mean Platelet Volume 9.5 fL (7.4-10.4); Platelet Count 213 K/uL (130-400); RDW Coefficient of Variation 14.9 % (11.5-14.5); RDW Standard Deviation 46.5 fL (36.4-46.3); Red Blood Count 2.78 M/uL (4.2-5.4); White Blood Count 17.04 K/uL (4.8-10.8)
[2021-02-26] MEDS: PRENATAL VITAMIN 1 TAB PO SCH (07:29)
[2021-02-26] MEDS: DOCUSATE SODIUM 100 MG CAP PO SCH (07:29)
--- NOTE | 2021-02-26 07:31 | Obstetrical Progress Note ---
Date of Service <Yared Gomez MD - Last Filed: 02/26/21 07:55> February 26, 2021 Assessment & Plan <Yared Gomez MD - Last Filed: 02/26/21 07:55> (1) Supervision of normal intrauterine in primigravida: A/P: Alaina Phillip is a 31 y/o female on PPD#1 following at 40+2 weeks. * Patient feels well today; eating well, voiding well, ambulating well * Pain well-controlled with ibuprofen 600mg q4h prn * Continue levothyroxine * PNL: Rh neg, RI, GBS neg, COVID neg * Routine care: OOB, ambulation, diet progression as tolerated * After discharge, will have six-week follow-up with Dr. Rashmi Deng <Yared Gomez MD - Last Filed: 02/26/21 07:55> Alaina Phillip is a 31 y/o female on PPD#1 following at 40+2 weeks. This morning she reports feeling well overall. Reports mild, 3/10 crampy abdominal pain well-managed on analgesics. Tolerating PO intake without nausea or vomiting. Patient has been able to ambulate without lightheadedness or dizziness. Reports voiding well without difficulty. Lochia continues, though with some improvement this morning. Review of Systems Denies fever, chills, CP, SOB, cough, breast pain, dysuria, leg pain, leg swelling, headache, and changes in vision Physical Exam <Yared Gomez MD - Last Filed: 02/26/21 07:55> General: alert, oriented, no acute distress Cardiac: regular rate and rhythm, no murmurs appreciated Respiratory: lungs clear to auscultation bilaterally a/p, no wheezes/rales/rhonchi, no increased work of breathing, symmetrical chest rise, no respiratory distress Abdomen: soft, minimally tender, nondistended, bowel sounds present Uterus: uterine fundus firm, palpable 2cm below umbilicus Lower extremities: no lower extremity edema or swelling, no deep calf pain, Angela's negative bilaterally Results & Data ([facility]) <Yared Gomez MD - Last Filed: 02/26/21 07:55> Vital Signs (Past 12 Hours) Vital Signs Temp Pulse Pulse Resp BP Pulse Ox 02/26/21 03:00 36.7 C 104 H 16 100/65 98 02/25/21 23:25 36.9 C 108 H 18 102/68 98 02/25/21 19:55 37 C 118 H 18 107/73 99 <Dar Burr MD - Last Filed: 02/26/21 08:19> Co-Signing Physician Notes Patient seen and evaluated and agree with the above findings and plan. Doing well. Routine care with possible discharge late afternoon if desired and doing well Resident Activity Tracking <Yared Gomez MD - Last Filed: 02/26/21 07:55> Resident Involvement: Resident Care Provided Care Provided: OB Delivery
[2021-02-26 07:36] LABS: ALC (manual) 3.41 K/uL (1.2-3.4); ANC (manual) 12.61 K/uL (1.4-6.5); Eosinophils # (manual) 0.17 K/uL (0-0.5); Lymphocytes # (manual) 3.41 K/uL (1.2-3.4); Monocytes # (manual) 0.85 K/uL (0.11-0.59); Neutrophils # (manual) 12.61 K/uL (1.4-6.5)
[2021-02-26] MEDS ORDERED: FERROUS SULFATE 325 MG TAB PO SCH (08:00)
[2021-02-26] MEDS: IBUPROFEN 600 MG TAB PO PRN (13:31)
--- NOTE | 2021-02-26 13:59 | Communication Note ---
Date of Service: February 26, 2021 Contacted by nursing that pt doing well, tolerating her hgb without sx and wants to go home. Dr. Burr had told me earlier today at signout that pt may be e ligible to go home this afternoon. Nurse to ask pt if she needs me to see her, evaluate her but otherwise will plan d/c home.
== END 2021-02-26 15:35 | disposition home or self-care (01) | DRG 807 ==
LOC: OPB 09:12 → 4S1 09:12 → 4S2 02-25 12:20

== ENCOUNTER 2022-09-16 08:32 | Inpatient (IN) ==
[2022-09-16] MEDS ORDERED: LIDOCAINE 1% LOCAL 20 ML VIAL INFIL PRN (08:43)
[2022-09-16] MEDS ORDERED: OXYTOCIN 30 UNITS/500 ML BAG IV PRN ×2 (08:43)
--- NOTE | 2022-09-16 08:52 | Labor Progress Brief Note ---
Date of Service September 16, 2022 Subjective Admitted for planned IOL at 40w6d due to postdates, had been scheduled for later this week but was moved to this date when an opening became available. Met patient this morning as she was not scheduled for appointment nor seen in clinic yesterday. No OB c/o at this time. Had concerns about safety of induction, discussed relative risks/benefits of induction vs remaining at this gestational age. Patient and support person present as well as Ludy BELTRAN. Patient is agreeable to proceed. Assessment & Plan (1) Post-dates : Plan: Induction of labor explained, will use pitocin, eventually AROM, may have epidural at any time. Asked about delivery preferences / plan, patient states she has none in particular at this time. Admission and Anticipated Discharge Date Admission Date: September 16, 2022 Physical Exam Constitutional: WD/WN, vitals as above Eyes: PERRL, conjunctivae normal, anicteric sclerae Neck: supple Respiratory: normal respiratory effort and able to speak in complete sentences; no respiratory distress Cardiovascular: Rate/Rhythm: regular rate and regular rhythm Extremities: + pedal edema Gastrointestinal (Abdomen): Gravid / AGA, nontender Musculoskeletal: no cyanosis or clubbing, extremities motor strength 5/5 Skin: no rashes, warm and dry Psychiatric: A+Ox3, euthymic affect Genitourinary: Speculum/Bimanual Exam: no vaginal lesions, no vaginal bleeding and uterus nontender OB Exam Abdomen: + vertex and + estimated weight (7) Manual OB Exam: + cervical dilation 2 cm, + cervical effacement (75%), + station -2 and + amniotic fluid (No leaking evident) OB Exam Monitor Tracing: + external FHT monitor used, + external uterine monitor used and + category I Results & Data ([facility]) Vital Signs (Past 12 Hours) Vital Signs Temp Pulse Resp BP Pulse Ox 09/16/22 08:37 98.8 F 105 H 20 129/67 99 Coding Level of Care Code None Diagnoses Post-dates O48.0
[2022-09-16] MEDS: LACTATED RINGER'S 1,000 ML IV PRN ×3 (09:24→17:50)
[2022-09-16 09:48] LABS: Hematocrit (blood only) 34.6 % (34.1-44.9); Hemoglobin 11.3 g/dl (12.0-16.0); Mean Corpuscular Hgb Conc 32.7 g/dL (32.0-36.0); Mean Corpuscular Volume 82.8 fL (80.0-100.0); Platelet Count 257 K/uL (130-400); RDW Coefficient of Variation 15.7 % (11.5-14.5); RDW Standard Deviation 46.6 fL (36.4-46.3); Red Blood Count 4.18 M/uL (3.93-5.22); White Blood Count 14.72 K/ul (4.8-10.8)
[2022-09-16] MEDS ORDERED: SODIUM CHLORIDE 0.9% 250 ML IV PRN (09:58)
[2022-09-16] MEDS ORDERED: ePHEDrine sulfate 50 MG/ML AMP ONE (11:16)
[2022-09-16] MEDS ORDERED: fentaNYL citrate 100 MCG/2 ML VIAL ONE (11:17)
[2022-09-16] MEDS ORDERED: LIDOCAINE 2%/EPINEPHRINE 1:200,000 20 ML SDV ONE (11:17)
[2022-09-16] MEDS ORDERED: SODIUM CHLORIDE 0.9% INJ 10 ML VIAL ONE (11:17)
[2022-09-16] MEDS ORDERED: BUPIVACAINE 0.25% 30 ML VIAL ONE (11:17)
[2022-09-16] MEDS ORDERED: fentaNYL 2MCG/ML ROPIVACAINE 1.25MG/ML 100 ML BAG EPI ONE (11:18)
[2022-09-16] MEDS ORDERED: ONDANSETRON INJ 2 MG/ML 2 ML VIAL IV PRN (11:31)
[2022-09-16] MEDS ORDERED: ePHEDrine sulfate 50 MG/ML AMP IV PRN (11:31)
[2022-09-16] MEDS ORDERED: diphenhydrAMINE 50 MG/ML VIAL IV PRN (11:31)
[2022-09-16] MEDS ORDERED: NALOXONE HCL 1 MG in SODIUM CHLORIDE 0.9% 1000ML 1,000 ML IV PRN (11:31)
[2022-09-16] MEDS ORDERED: NALBUPHINE HCL INJ 10 MG/ML AMP IV PRN (11:31)
[2022-09-16] MEDS ORDERED: NALOXONE HCL 0.4 MG/1 ML VIAL/CARP IV PRN (11:31)
--- NOTE | 2022-09-16 11:31 | Anesthesiology Consultation ---
Date of Service September 16, 2022 Assessment & Plan ASA ASA3 Proposed Anesthesia Anesthesia Type: Labor Epidural Risk / Benefits Reviewed With: PT / POA / Parent / Guardian, Accepts Plan and Informed Consent Obtained History Height/Weight Height: 5 ft 7 in Weight: 110.223 kg Allergies Allergy/AdvReac Type Severity Reaction Status Date / Time Penicillins Allergy rash Verified 09/15/22 00:03 pollen extracts Allergy Rash Verified 09/15/22 00:03 Medications Home Medications Medication Instructions Recorded Confirmed Last Taken albuterol sulfate 90 mcg/actuation 2 puff inhalation Q6H PRN 10/18/20 09/16/22 Unknown aerosol inhaler Shortness Of Breath Or Wheezing levothyroxine 200 mcg capsule 212 mcg PO DAILY 10/18/20 09/16/22 09/16/22 06:00 prenat.vits,linda,[id number] 1 tab PO DAILY 02/26/22 09/16/22 09/15/22 08:00 dextroamphetamine-amphetamine ER 15 mg PO QAM 09/16/22 09/16/22 02/10/22 15 mg 24hr capsule,extend release (Adderall XR) ferrous sulfate 325 mg (65 mg 325 mg PO DAILY 09/16/22 09/16/22 09/15/22 08:00 iron) tablet (iron) Active Medications Generic Name Dose Route Start Last Admin Trade Name Freq PRN Reason Stop Dose Admin Oxytocin 30 units in 500 mls @ 7 mls/hr 09/16/22 08:43 09/16/22 11:00 Pitocin IV 09/18/22 08:42 0.42 units/hr .Q24H PRN 7 mls/hr Labor Induction/Augmentation Titration Protocol 0.42 UNITS/HR Lactated Ringer's 1,000 mls @ 125 mls/hr 09/16/22 08:43 09/16/22 11:04 Lr IV 09/18/22 08:42 999 mls/hr .Q8H PRN Infusion L&D Protocol Protocol Past Medical History Medical History Asthma Encounter for anatomic survey Encounter for pre-operative examination History of chicken pox Hypothyroidism during Idiopathic hypersomnia Normal labor and delivery Skin cancer Supervision of normal intrauterine in primigravida Exercise / Class Metabolic Activity II 4-5 Yardwork/Stairs/Walk up hill Past Family History Family History Father Myocardial infarction Diabetes Mother COPD (chronic obstructive pulmonary disease) Grandmother (Paternal) Skin cancer Denies family history of Ovarian cancer Breast cancer Colorectal cancer Past Surgical History Surgical History History of colposcopy with cervical biopsy S/P wisdom tooth extraction Status post surgical removal of malignant neoplasm of skin Past Anesthesia History No Hx of Anesthesia Complications and No Family Hx of Anesthesia Complications History of PONV No Hx of PONV and No Hx of Motion Sickness Social History Smoking Status: Former smoker Do You Dip or Chew Tobacco: No Smoking End Date: 2019 Hx Alcohol Use: No Hx Substance Use: No substance use type: does not use Review of Systems denies fever/cough/ colds/ chest pain/ SOB/ MATTHEW denies MATTHEW Physical Exam Vital Signs Last Vital Signs Temp 37.1 C 09/16/22 08:37 Pulse 107 H 09/16/22 11:57 Resp 20 09/16/22 09:46 BP 136/69 09/16/22 11:57 Pulse Ox 99 09/16/22 11:57 ENMT Mouth: no TMJ abnormality and no dentition abnormality Thyromental Distance: > or= 3.5 Finger Breadths Mallampati Class: II Neck neck extension not limited Respiratory normal respiratory effort; no respiratory distress Auscultation: lungs clear to auscultation bilaterally Cardiovascular Rate/Rhythm: regular rate and regular rhythm Neurologic moves all extremities Psychiatric Orientation: alert and oriented x 3 Testing Laboratory Results 09/16/22 09:33
--- NOTE | 2022-09-16 13:13 | Labor Progress Brief Note ---
Date of Service September 16, 2022 Subjective Comfortable with epidural. Unclear to pt if she has leaked some fluid or not. Assessment & Plan (1) Post-dates : Plan: Continue IOL. Admission and Anticipated Discharge Date Admission Date: September 16, 2022 Physical Exam Genitourinary: FHT Cat 1 Pandora Q3-4 Initial cvx exam with large, soft, bulging anterior vaginal structure. Cervix was posterior, has moved to patient R, no longer well applied by presenting part. Bedside US confirms fetus still vertex but large fluid filled "balloon" is positioned distal to the head, predominantly below the pubic symphysis, and bladder difficult to identify separate from this fluid filled balloon. Catheterization of bladder removed 400+cc very clear urine, and ballooning of anterior vaginal wall resolved; vaginal exam done during catheterization to apply pressure to anterior vaginal wall / cystocele, and assist drainage. Output of urine so far since admission over 1300cc per RN. After bladder drainage, cervix returned to central position with vertex well applied, 3/80/-2, and AROM was performed for clear fluid. Leakage previously appreciated by patient was almost certainly small dribbles of urine. Results & Data ([facility]) Vital Signs (Past 12 Hours) Vital Signs Temp Pulse Resp BP Pulse Ox 09/16/22 13:02 115 H 98 09/16/22 12:57 142 H 100 09/16/22 12:52 111 H 141/77 H 100 09/16/22 12:47 134 H 100 09/16/22 12:42 116 H 97 09/16/22 12:37 97 09/16/22 12:37 118 H 09/16/22 12:37 109 H 131/63 09/16/22 12:32 122 H 98 09/16/22 12:27 126 H 98 09/16/22 12:22 127 H 97 09/16/22 12:21 116 H 127/70 09/16/22 12:17 121 H 99 09/16/22 12:12 117 H 98 09/16/22 12:07 124 H 98 09/16/22 12:05 129 H 127/74 09/16/22 12:03 120 H 133/75 09/16/22 12:02 114 H 99 09/16/22 12:01 98.4 F 115 H 20 131/69 09/16/22 11:59 111 H 131/75 09/16/22 11:57 107 H 136/69 99 09/16/22 11:55 109 H 138/76 09/16/22 11:53 118 H 134/70 09/16/22 11:52 109 H 99 09/16/22 11:50 102 H 148/65 H 09/16/22 11:47 117 H 99 09/16/22 11:42 124 H 99 09/16/22 11:37 103 H 100 09/16/22 11:29 117 H 99 09/16/22 10:45 111 H 143/78 H 09/16/22 10:29 112 H 145/86 H 09/16/22 10:15 103 H 139/88 09/16/22 10:00 113 H 20 135/77 09/16/22 09:46 106 H 20 135/77 09/16/22 09:30 116 H 143/75 H 09/16/22 08:37 98.8 F 105 H 20 129/67 99 Coding Level of Care Code None Diagnoses Post-dates O48.0
[2022-09-16] MEDS: fentaNYL 2MCG/ML ROPIVACAINE 1.25MG/ML 100 ML BAG EPI PRN ×2 (18:48→22:52)
--- NOTE | 2022-09-17 00:09 | Delivery Summary ---
Vaginal Delivery Summary Date of Service September 17, 2022 Vaginal Delivery Summary DIAGNOSES: 1. Sandhu intrauterine at 40w6d gestation. 2. Induction of Labor for PostDates 3. Group B Streptococcus Neg. PROCEDURE: Spontaneous vaginal delivery and repair of first degree perineal laceration. SURGEON: Alaina Caraballo MD. TELESCOPE OPERATOR: None. ESTIMATED BLOOD LOSS: 300 mL. COMPLICATIONS: None. PLACENTA: Spontaneous and intact with a 3-vessel cord. DISPOSITION: Stable to labor and delivery. DESCRIPTION: The patient pushed well and brought the head to in OA position. The infant's head was allowed to deliver with contraction force and no further active pushing, with the perineum protected during this time. There was no nuchal cord. The shoulders and body delivered without any difficulty, and the was placed on the maternal abdomen. It was vigorous and moving all extremities, and making respiratory efforts. The cord was doubly clamped by the MD and then cut by the FOB. The placenta delivered spontaneously and was noted to be intact and with a 3VC, which was not marginal despite predictions. The cervix, vagina and perineum were examined and were found to have a small 1st degree laceration, which was repaired with 3-0 vicryl running locked suture for cosmesis. The fundus was firm and lochia minimal immediately after delivery. [facility] Vaginal Delivery Charge Vaginal Delivery Codes: 81513 global code for the antepartum, delivery, and post-
[2022-09-17] MEDS ORDERED: oxyCODONE/ACETAMINOPHEN 5mg/325mg TAB PO PRN (00:38)
[2022-09-17] MEDS ORDERED: ACETAMINOPHEN 325 MG TAB PO PRN (00:38)
[2022-09-17] MEDS ORDERED: HYDROCORTISONE ACETATE 25 MG SUPP PR PRN (00:38)
[2022-09-17] MEDS ORDERED: DIPHTHERIA/TETANUS/PERTUSSIS 0.5 ML SYR/VIAL IM ONE (00:38)
[2022-09-17] MEDS ORDERED: BENZOCAINE 20% AER SPR 82.5 GM CAN EXT PRN (00:38)
[2022-09-17] MEDS ORDERED: ALBUTEROL HFA 8 GM INHALER INH PRN (00:38)
[2022-09-17] MEDS: IBUPROFEN 600 MG TAB PO PRN ×4 (00:47→20:35)
[2022-09-17] MEDS ORDERED: Nursing to Pharmacy Communication SCH (06:00)
[2022-09-17] MEDS ORDERED: LEVOTHYROXINE SODIUM 100 MCG TABLET PO SCH (06:30)
[2022-09-17] MEDS ORDERED: LEVOTHYROXINE SODIUM 112 MCG TABLET PO SCH (06:30)
[2022-09-17] MEDS: LEVOTHYROXINE SODIUM 200 MCG TABLET PO SCH (06:38)
--- NOTE | 2022-09-17 06:55 | Obstetrical Progress Note ---
Date of Service September 17, 2022 Assessment & Plan (1) Vaginal delivery: Routine care to continue. Will be 24hr after delivery middle of night, so plan to d/c tomorrow AM. Subjective Ambulation: ambulating normally Voiding: no voiding problems Passing Gas:: Yes Diet Tolerance:: regular diet Lochia:: Small Feeding Type:: bottle feeding Physical Exam Exam limited as patient cuddling with baby Constitutional WD/WN, vitals as above Eyes PERRL, conjunctivae normal, anicteric sclerae Neck normal visual inspection Respiratory normal respiratory effort and able to speak in complete sentences; no respiratory distress and no labored breathing Cardiovascular Rate/Rhythm: regular rate and regular rhythm Extremities: no edema Chest (Breasts) Chest: normal inspection of chest Gastrointestinal (Abdomen) Inspection/Auscultation: abdomen normal to inspection Soft, postgravid Psychiatric A+Ox3, euthymic affect Results & Data ([facility]) Vital Signs (Past 12 Hours) Vital Signs Temp Pulse Pulse Resp BP BP Pulse Ox 09/17/22 03:00 97.5 F L 115 H 16 111/61 97 09/17/22 01:35 18 09/17/22 01:05 18 09/17/22 00:50 18 09/17/22 00:35 18 09/17/22 02:10 98.2 F 18 09/17/22 00:20 18 09/17/22 00:05 18 09/16/22 19:18 98.2 F 18 09/16/22 19:18 09/17/22 02:03 118 H 118/59 L 09/17/22 01:33 125 H 129/64 09/17/22 01:18 117 H 127/64 09/17/22 01:03 123 H 125/58 L 09/17/22 00:48 121 H 131/64 09/17/22 00:18 136 H 122/58 L 09/17/22 00:03 126 H 130/67 09/16/22 23:52 20 09/16/22 23:52 20 09/16/22 23:58 137 H 96 09/16/22 23:53 148 H 97 09/16/22 23:48 140 H 97 09/16/22 23:42 142 H 97 09/16/22 23:39 148 H 89 L 09/16/22 23:38 134 H 129/61 09/16/22 23:37 136 H 98 09/16/22 23:32 134 H 97 09/16/22 23:30 134 H 18 88 L 09/16/22 23:27 127 H 98 09/16/22 23:22 98 09/16/22 23:22 125 H 09/16/22 23:22 126 H 138/71 09/16/22 23:17 127 H 98 09/16/22 23:12 115 H 97 09/16/22 23:07 116 H 98 09/16/22 23:06 120 H 128/74 09/16/22 23:00 18 09/16/22 23:00 18 09/16/22 23:02 116 H 98 09/16/22 22:57 123 H 98 09/16/22 22:55 98.8 F 09/16/22 22:52 130 H 99 09/16/22 22:51 122 H 138/76 09/16/22 22:47 128 H 99 09/16/22 22:42 119 H 99 09/16/22 22:37 118 H 96 09/16/22 22:36 106 H 119/57 L 09/16/22 22:30 18 09/16/22 22:30 18 09/16/22 22:32 114 H 96 09/16/22 22:27 115 H 96 09/16/22 22:22 115 H 96 09/16/22 22:21 114 H 107/53 L 09/16/22 22:17 116 H 96 09/16/22 22:12 118 H 96 09/16/22 22:07 112 H 96 09/16/22 22:06 114 H 125/57 L 09/16/22 22:02 116 H 97 09/16/22 22:00 18 09/16/22 22:00 18 09/16/22 21:57 116 H 97 09/16/22 21:52 117 H 98 09/16/22 21:51 115 H 118/59 L 09/16/22 21:47 115 H 98 09/16/22 21:42 111 H 98 09/16/22 21:30 18 09/16/22 21:30 18 09/16/22 21:37 118 H 97 09/16/22 21:36 121 H 132/78 09/16/22 21:32 116 H 96 09/16/22 21:27 132 H 97 09/16/22 21:22 127 H 99 09/16/22 21:20 130 H 136/76 09/16/22 21:17 123 H 97 09/16/22 21:12 113 H 97 09/16/22 21:07 128 H 98 09/16/22 21:06 129 H 138/72 09/16/22 21:02 117 H 97 09/16/22 21:00 18 09/16/22 21:00 98.2 F 18 09/16/22 20:57 132 H 99 09/16/22 20:52 132 H 147/80 H 99 09/16/22 20:47 125 H 98 09/16/22 20:42 123 H 97 09/16/22 20:30 18 09/16/22 20:30 18 09/16/22 20:37 98 09/16/22 20:37 139 H 09/16/22 20:37 134 H 163/81 H 09/16/22 20:32 136 H 98 09/16/22 20:27 125 H 99 09/16/22 20:22 141 H 98 09/16/22 20:21 131 H 134/82 09/16/22 20:17 140 H 98 09/16/22 20:12 131 H 98 09/16/22 20:07 99 09/16/22 20:07 145 H 09/16/22 20:07 130 H 141/83 H 09/16/22 20:02 140 H 98 09/16/22 20:00 18 09/16/22 20:00 18 09/16/22 19:57 146 H 99 09/16/22 19:52 138 H 146/76 H 97 09/16/22 19:47 122 H 97 09/16/22 19:42 120 H 97 09/16/22 19:37 129 H 98 09/16/22 19:36 129 H 137/65 09/16/22 19:32 126 H 99 09/16/22 19:30 18 09/16/22 19:30 18 09/16/22 19:20 18 09/16/22 19:20 98.2 F 18 09/16/22 19:27 115 H 98 09/16/22 19:22 117 H 98 09/16/22 19:21 122 H 126/69 09/16/22 19:17 107 H 98 09/16/22 19:12 115 H 99 09/16/22 19:07 129 H 98 09/16/22 19:06 115 H 134/74 09/16/22 19:02 98.6 F 109 H 20 97 09/16/22 18:57 111 H 97 O2 Del Method 09/17/22 03:00 Room Air 09/17/22 01:35 09/17/22 01:05 09/17/22 00:50 09/17/22 00:35 09/17/22 02:10 09/17/22 00:20 09/17/22 00:05 09/16/22 19:18 09/16/22 19:18 Room Air 09/17/22 02:03 09/17/22 01:33 09/17/22 01:18 09/17/22 01:03 09/17/22 00:48 09/17/22 00:18 09/17/22 00:03 09/16/22 23:52 09/16/22 23:52 09/16/22 23:58 09/16/22 23:53 09/16/22 23:48 09/16/22 23:42 09/16/22 23:39 09/16/22 23:38 09/16/22 23:37 09/16/22 23:32 09/16/22 23:30 09/16/22 23:27 09/16/22 23:22 09/16/22 23:22 09/16/22 23:22 09/16/22 23:17 09/16/22 23:12 09/16/22 23:07 09/16/22 23:06 09/16/22 23:00 09/16/22 23:00 09/16/22 23:02 09/16/22 22:57 09/16/22 22:55 09/16/22 22:52 09/16/22 22:51 09/16/22 22:47 09/16/22 22:42 09/16/22 22:37 09/16/22 22:36 09/16/22 22:30 09/16/22 22:30 09/16/22 22:32 09/16/22 22:27 09/16/22 22:22 09/16/22 22:21 09/16/22 22:17 09/16/22 22:12 09/16/22 22:07 09/16/22 22:06 09/16/22 22:02 09/16/22 22:00 09/16/22 22:00 09/16/22 21:57 09/16/22 21:52 09/16/22 21:51 09/16/22 21:47 09/16/22 21:42 09/16/22 21:30 09/16/22 21:30 09/16/22 21:37 09/16/22 21:36 09/16/22 21:32 09/16/22 21:27 09/16/22 21:22 09/16/22 21:20 09/16/22 21:17 09/16/22 21:12 09/16/22 21:07 09/16/22 21:06 09/16/22 21:02 09/16/22 21:00 09/16/22 21:00 09/16/22 20:57 09/16/22 20:52 09/16/22 20:47 09/16/22 20:42 09/16/22 20:30 09/16/22 20:30 09/16/22 20:37 09/16/22 20:37 09/16/22 20:37 09/16/22 20:32 09/16/22 20:27 09/16/22 20:22 09/16/22 20:21 09/16/22 20:17 09/16/22 20:12 09/16/22 20:07 09/16/22 20:07 09/16/22 20:07 09/16/22 20:02 09/16/22 20:00 09/16/22 20:00 09/16/22 19:57 09/16/22 19:52 09/16/22 19:47 09/16/22 19:42 09/16/22 19:37 09/16/22 19:36 09/16/22 19:32 09/16/22 19:30 09/16/22 19:30 09/16/22 19:20 09/16/22 19:20 09/16/22 19:27 09/16/22 19:22 09/16/22 19:21 09/16/22 19:17 09/16/22 19:12 09/16/22 19:07 09/16/22 19:06 09/16/22 19:02 09/16/22 18:57
[2022-09-17] MEDS: PRENATAL VITAMIN 1 TAB PO SCH (09:02)
[2022-09-17] MEDS: DEXTROAMPHETAMINE/AMPHETAMINE ER 5 MG CAP PO SCH (09:02)
[2022-09-17] MEDS: DEXTROAMPHETAMINE/AMPHETAMINE ER 10 MG CAP PO SCH (09:02)
[2022-09-17] MEDS: DOCUSATE SODIUM 100 MG CAP PO SCH ×2 (09:03→20:35)
[2022-09-18 06:23] LABS: Hematocrit (blood only) 29.7 % (34.1-44.9); Hemoglobin 9.4 g/dl (12.0-16.0); Mean Corpuscular Hemoglobin 27.1 pg (25.0-34.0); Mean Corpuscular Hgb Conc 31.6 g/dL (32.0-36.0); Mean Corpuscular Volume 85.6 fL (80.0-100.0); Mean Platelet Volume 10.1 fL (9.4-12.3); Platelet Count 219 K/uL (130-400); RDW Coefficient of Variation 16.3 % (11.5-14.5); RDW Standard Deviation 50.4 fL (36.4-46.3); Red Blood Count 3.47 M/uL (3.93-5.22); White Blood Count 12.81 K/ul (4.8-10.8)
[2022-09-18] MEDS: LEVOTHYROXINE SODIUM 200 MCG TABLET PO SCH (06:25)
--- NOTE | 2022-09-18 06:36 | Anesthesia Procedure Note ---
Date of Service September 18, 2022 Anesthesia Post Epidural Note Vital Signs Vital Signs: Temp Pulse Resp BP Pulse Ox O2 Del Method 36.6 C 96 H 16 132/80 96 09/18/22 00:45 09/18/22 00:45 09/18/22 00:45 09/18/22 00:45 09/17/22 07:25 09/18/22 00:45 Pain Intensity Abdomen: Pain Intensity: 4 Episiotomy/Laceration: Pain Intensity: 4 Notes Mental Status: alert / awake / arousable and participated in evaluation Nausea / Vomiting: adequately controlled Pain: adequately controlled Airway Patency, RR, SpO2: stable & adequate BP & HR: stable & adequate Hydration State: stable & adequate Neuraxial Anesthesia: was administered Anesthetic Complications: no major complications apparent and Pt Satisfied with anesthetic care Epidural: Removed without complications and With tip intact
[2022-09-18] MEDS: DEXTROAMPHETAMINE/AMPHETAMINE ER 5 MG CAP PO SCH (07:50)
[2022-09-18] MEDS: DEXTROAMPHETAMINE/AMPHETAMINE ER 10 MG CAP PO SCH (07:50)
[2022-09-18] MEDS: PRENATAL VITAMIN 1 TAB PO SCH (07:50)
[2022-09-18] MEDS: IBUPROFEN 600 MG TAB PO PRN (07:50)
[2022-09-18] MEDS: DOCUSATE SODIUM 100 MG CAP PO SCH (07:50)
--- NOTE | 2022-09-18 07:56 | Obstetrical Progress Note ---
Date of Service September 18, 2022 Assessment & Plan (1) examination following vaginal delivery: Plan stable ready for dc home, instructions reviewed. advised bid fe x 6wks. bottle/ri. f/u 6 wk pp check. Day #:: 2 Subjective Ambulation: ambulating normally Voiding: no voiding problems Diet Tolerance:: regular diet Lochia:: Small Feeding Type:: bottle feeding denies pain issues. Physical Exam Constitutional WD/WN, vitals as above Respiratory normal respiratory effort, lungs clear to auscultation Cardiovascular Rate/Rhythm: regular rate and regular rhythm Gastrointestinal (Abdomen) Inspection/Auscultation: abdomen normal to inspection Percussion/Palpation: abdomen soft Fundus firm 2cm down Musculoskeletal nt calves tr edema Neurologic grossly normal Psychiatric A+Ox3, euthymic affect Results & Data ([facility]) Vital Signs (Past 12 Hours) Vital Signs Temp Pulse Resp BP O2 Del Method 09/18/22 00:45 97.9 F 96 H 16 132/80 Room Air 09/17/22 20:25 97.9 F 103 H 18 139/81 Room Air
== END 2022-09-18 12:26 | disposition home or self-care (01) | DRG 807 ==
LOC: 4S1 08:32 → 4E2 09-17 02:30